=== PATIENT | female | born 1950 | race Caucasian/White ===

== ENCOUNTER 2024-03-25 09:32 | Inpatient (IN) | payer MEDICARE ==
[~2024-03-25] VITALS: Ht 167.6 cm; Wt 64.0 kg
[2024-03-25 14:40] VITALS: BP 116/60; PULSE 82; RESP 18; TEMP 97.9; O2SAT 98
[2024-03-25] MEDS ORDERED: MAGNESIUM HYDROXIDE SUSPENSION 30 ML UDCUP PO PRN (15:00)
[2024-03-25] MEDS ORDERED: BISACODYL 10 MG RECTAL RECTAL SUPPOSITORY PR PRN (15:00)
[2024-03-25] MEDS ORDERED: ONDANSETRON 4 MG TABLET PO PRN (15:00)
[2024-03-25] MEDS: ACETAMINOPHEN 325 MG TABLET PO PRN (17:33)
[2024-03-25 20:00] VITALS: BP 109/54; PULSE 75; RESP 18; TEMP 98.2; O2SAT 96
[2024-03-25] MEDS: MELATONIN 5 MG TABLET PO SCH (21:00)
[2024-03-25] MEDS: FAMOTIDINE 20 MG TABLET PO SCH (21:40)
[2024-03-25] MEDS: DOCUSATE SODIUM 100 MG CAPSULE PO SCH (21:40)
[2024-03-26] MEDS: METHYLPHENIDATE HCL 10 MG TABLET PO SCH (06:11)
[2024-03-26 06:31] LABS: BASOPHILS % (AUTO) 0.4 % (0.0-2.0); EOSINOPHILS % (AUTO) 1.2 % (1.0-6.0); HEMATOCRIT 40.9 % (36-46); HEMOGLOBIN 13.9 g/dL (12.0-16.0); LYMPHOCYTES # (AUTO) 2.6 K/uL (1.0-4.8); LYMPHOCYTES % (AUTO) 25.8 % (22.0-44.0); MEAN CORPUSCULAR HEMOGLOBIN 32.8 pg (26.0-34.0); MEAN CORPUSCULAR VOLUME 96 fL (80-100); MONOCYTES % (AUTO) 10.1 % (2.0-9.0); NEUTROPHILS # (AUTO) 6.3 K/uL (1.8-7.7); NEUTROPHILS % (AUTO) 62.5 % (40.0-70.0); PLATELET COUNT (AUTO) 372 K/uL (150-450); RED BLOOD CELL COUNT(AUTO) 4.24 MIL/uL (4.00-5.20); RED CELL DISTRIBUTION WIDTH 13.4 % (11.5-14.5)
[2024-03-26 06:43] LABS: ALANINE AMINOTRANSFERASE 32 U/L (12-78); ALBUMIN 3.1 g/dL (3.4-5.0); ALKALINE PHOSPHATASE 81 U/L (46-116); ANION GAP 7 mmol/L (8-16); ASPARTATE AMINOTRANSFERASE 26 U/L (15-37); BILIRUBIN,TOTAL 0.4 mg/dL (0.1-1.0); CALCIUM, TOTAL 9.4 mg/dL (8.8-10.5); CARBON DIOXIDE 25 mmol/L (22-29); CHLORIDE 101 mmol/L (98-107); CREATININE 0.75 mg/dL (0.60-1.30); GLOMERULAR FILTR. RATE CALC > 60 mL/min (>60); GLUCOSE,RANDOM 110 mg/dL (70-110); POTASSIUM 4.3 mmol/L (3.5-5.1); SODIUM SERUM 133 mmol/L (136-145); TOTAL PROTEIN, SERUM 7.4 g/dL (6.4-8.2); UREA NITROGEN, BLOOD 18 mg/dL (7-18)
[2024-03-26 08:00] VITALS: BP 107/52; PULSE 63; RESP 19; TEMP 98; O2SAT 97
[2024-03-26 09:00] VITALS: BP 94/51; PULSE 93; RESP 18; O2SAT 97
[2024-03-26] MEDS ORDERED: LISINOPRIL 20 MG TABLET PO SCH (09:00)
[2024-03-26] MEDS ORDERED: AmLODIPine BESYLATE 10 MG TABLET PO SCH (09:00)
[2024-03-26] MEDS: LISINOPRIL 20 MG TABLET PO SCH (09:00)
[2024-03-26] MEDS: AmLODIPine BESYLATE 10 MG TABLET PO SCH (09:00)
[2024-03-26] MEDS: ATORVASTATIN CALCIUM 20 MG TABLET PO SCH (09:00)
[2024-03-26 16:55] VITALS: BP 122/74; PULSE 83; RESP 18; O2SAT 100
[2024-03-26 20:00] VITALS: BP 83/54; PULSE 81; RESP 18; TEMP 97.9; O2SAT 97
[2024-03-26 20:07] VITALS: BP 118/68
[2024-03-26 23:18] VITALS: O2SAT 94
[2024-03-27] VITALS (7 sets, daily range): BP systolic 124–135; BP diastolic 75–81; PULSE 78–85; RESP 18; TEMP 97.9–98.4; O2SAT 65–98
[2024-03-27] MEDS ORDERED: MELATONIN 5 MG TABLET PO PRN (10:30)
[2024-03-27] MEDS: ENOXAPARIN SODIUM 30 MG/0.3 ML PF SYRINGE SQ SCH (21:34)
[2024-03-27] MEDS: ETHYL ALCOHOL 62% ANTISEPTIC NASAL SANITIZER 0.6 ML AMPUL NASAL SCH (21:50)
[2024-03-28 08:00] VITALS: BP 140/73; PULSE 81; RESP 18; TEMP 98.3; O2SAT 96
[2024-03-28 10:31] VITALS: O2SAT 96
[2024-03-28 11:31] VITALS: BP 107/71; PULSE 89
[2024-03-28 20:00] VITALS: BP 125/69; PULSE 81; RESP 18; TEMP 98.9; O2SAT 96
[2024-03-28] MEDS: DOCUSATE SODIUM 250 MG CAPSULE PO SCH (20:39)
[2024-03-29 08:00] VITALS: BP 120/63; PULSE 85; RESP 18; TEMP 98.3; O2SAT 99
[2024-03-29 19:34] VITALS: BP 119/69; PULSE 93; RESP 18; TEMP 98.9; O2SAT 96
[2024-03-29 22:52] VITALS: O2SAT 96
[2024-03-29] MEDS ORDERED: METH-530 PO (23:45)
[2024-03-29] MEDS ORDERED: ATOR20TA PO (23:45)
[2024-03-29] MEDS ORDERED: FAMO20 PO (23:45)
[2024-03-29] MEDS ORDERED: AMLO-258 PO (23:45)
[2024-03-29] MEDS ORDERED: DOCU-412 PO (23:45)
[2024-03-30] VITALS (9 sets, daily range): BP systolic 100–122; BP diastolic 48–72; PULSE 73–109; RESP 16–18; TEMP 98.2–98.6; O2SAT 95–98
[2024-03-30] MEDS: METHYLPHENIDATE HCL 10 MG TABLET PO SCH (06:26)
[2024-03-30] MEDS ORDERED: METH-358 PO (12:41)
[2024-03-30 18:38] LABS: BASOPHILS % (AUTO) 0.7 % (0.0-2.0); EOSINOPHILS % (AUTO) 1.3 % (1.0-6.0); HEMATOCRIT 39.8 % (36-46); HEMOGLOBIN 13.1 g/dL (12.0-16.0); LYMPHOCYTES % (AUTO) 36.2 % (22.0-44.0); MEAN CORPUSCULAR VOLUME 97 fL (80-100); MONOCYTES # (AUTO) 0.8 K/uL (0.1-1.0); MONOCYTES % (AUTO) 9.7 % (2.0-9.0); NEUTROPHILS # (AUTO) 4.3 K/uL (1.8-7.7); NEUTROPHILS % (AUTO) 52.1 % (40.0-70.0); PLATELET COUNT (AUTO) 454 K/uL (150-450); RED BLOOD CELL COUNT(AUTO) 4.09 MIL/uL (4.00-5.20); RED CELL DISTRIBUTION WIDTH 12.9 % (11.5-14.5); WHITE BLOOD COUNT (AUTO) 8.3 K/uL (4.5-11.0)
[2024-03-30 18:55] LABS: D-DIMER 4.25 mg/L FEU (0.00-0.50); PROTHROMBIN TIME 10.7 SEC (9.4-11.6)
[2024-03-30] MEDS: APIXABAN 5 MG TABLET PO SCH (20:57)
[2024-03-31 08:00] VITALS: BP 116/69; PULSE 89; RESP 18; TEMP 98.4; O2SAT 97
[2024-03-31 20:00] VITALS: BP 113/64; PULSE 87; RESP 18; TEMP 98; O2SAT 97
[2024-04-01 08:36] VITALS: BP 109/64; PULSE 84; RESP 18; TEMP 97.9; O2SAT 97
[2024-04-01 20:00] VITALS: BP 101/52; PULSE 85; RESP 18; TEMP 98.2; O2SAT 97
[2024-04-02 08:05] VITALS: BP 120/66; PULSE 75; RESP 18; TEMP 98.2; O2SAT 98
[2024-04-02 11:10] VITALS: O2SAT 98
[2024-04-02] MEDS ORDERED: FAMO20 PO (12:38)
[2024-04-02] MEDS ORDERED: ATOR20TA65 PO (12:38)
[2024-04-02] MEDS ORDERED: APIX5TAB PO (12:38)
[2024-04-02] MEDS ORDERED: DOCU-412 PO (12:38)
[2024-04-02] MEDS ORDERED: AMLO-258 PO (12:38)
[2024-04-02 20:01] VITALS: BP 102/60; PULSE 66; RESP 18; TEMP 98.4; O2SAT 94
[2024-04-02 21:05] LABS: DRVVT-LUPUS ANTICOAGULANT 36.8 sec (0.0-47.0); PROTEIN S, FREE 114 % (61-136); PT-LUPUS ANTICOAGULANT 10.9 sec (9.1-12.0); PTT 24.8 sec (22.9-30.2)
[2024-04-02 22:02] VITALS: O2SAT 95
[2024-04-03] MEDS: PNEUMOCOCCAL VACCINE POLYVALENT 0.5 ML SYRINGE [PPSV23] IM. ONE ×2 (06:30→12:35)
[2024-04-03 08:05] VITALS: BP 120/67; PULSE 77; RESP 18; TEMP 98.4; O2SAT 98
[2024-04-03 09:30] VITALS: O2SAT 98
[2024-04-04 12:06] LABS: PROTEIN C AG-TOTAL 137 % (60-150)
[2024-04-06] MEDS ORDERED: APIXABAN 5 MG TABLET PO SCH (21:00)
== END 2024-04-03 09:40 | disposition home or self-care (01) | DRG 56 ==
LOC: 2WR 15:55
PROVIDERS: ADMIT Physical Medicine & Rehabilitation; ATTEND Physical Medicine & Rehabilitation
DX: I69.351 Hemiplegia and hemiparesis following cerebral infarction affecting right dominant side (principal); I61.0 Nontraumatic intracerebral hemorrhage in hemisphere, subcortical; I61.5 Nontraumatic intracerebral hemorrhage, intraventricular; E46 Unspecified protein-calorie malnutrition; R47.01 Aphasia; I82.451 Acute embolism and thrombosis of right peroneal vein; I82.811 Embolism and thrombosis of superficial veins of right lower extremity; I10 Essential (primary) hypertension; R13.10 Dysphagia, unspecified; R29.810 Facial weakness; E78.00 Pure hypercholesterolemia, unspecified; F43.20 Adjustment disorder, unspecified; Z74.09 Other reduced mobility; R41.89 Other symptoms and signs involving cognitive functions and awareness; R53.1 Weakness; Z79.01 Long term (current) use of anticoagulants; Z68.22 Body mass index [BMI] 22.0-22.9, adult; Z79.899 Other long term (current) drug therapy
CPT/HCPCS: 70450; 80053; 81241; 85025; 85302; 85305; 85306; 85379; 85384; 85610; 85613; 85730; 85732; 87081; 90732; 92507; 92523; 92526; 92610; 93970; 94760; 97110; 97112; 97116; 97163; 97530; 97535; 99366; J1650